=== PATIENT | female | born 1950 | race Caucasian/White ===

== ENCOUNTER 2017-11-16 14:57 | Inpatient (IN) ==
--- NOTE | 2017-11-16 16:01 | Emergency Department Note ---
Disposition Clinical Impression: Cellulitis Qualifiers: Site of cellulitis: extremity Site of cellulitis of extremity: lower extremity Laterality: left Qualified Code(s): L03.116 - Cellulitis of left lower limb Disposition: Admitted As Inpatient Condition: Fair Referrals: Pollo Swan DO [Primary Care Provider] - Forms: ED Satisfaction Letter Time of Disposition: 17:47 Skin/Abscess/FB HPI Chief complaint: ED Skin/Abscess/Foreign Body Stated complaint: "Cellulitis" Time Seen by Provider: 11/16/17 15:54 Source: patient Mode of arrival: ambulatory Limitations: no limitations Nursing Notes Reviewed: Yes Vital Signs Reviewed: Yes HPI Narrative: 67-year-old who presents with department complaining of an infection on her left anterior leg. The patient was seen at urgent care yesterday placed on Keflex and the of rashes gotten significantly worse according the patient. Achy all over she's had 2 episodes of significant cellulitis in the past requiring admission. Pt Subjective Complaint: rash Onset (ago): day(s) (2) Location: LLE Severity: moderate Quality: burning, aching Consistency: constant Improves with: none Worsens with: palpation Context: recent antibiotic Associated symptoms: Reports: chills Treatments prior to arrival: antibiotic Home Medications Medication Instructions Recorded Confirmed DULoxetine [Cymbalta] 30 mg PO BID 05/12/16 01/21/17 Itraconazole [Sporanox] 200 mg PO BID 05/12/16 01/21/17 Meloxicam [Mobic] 15 mg PO DAILY 05/12/16 01/21/17 amLODIPine [Norvasc] 5 mg PO DAILY 05/12/16 01/21/17 metFORMIN [Glucophage] 500 mg PO DAILY 05/12/16 01/21/17 rOPINIRole [Requip] 1 mg PO HS 05/12/16 01/21/17 Albuterol Sulfate [Albuterol 2 puff IH Q4HR PRN 11/10/16 01/21/17 Inhaler] Previous Rx's Medication Instructions Recorded Amoxicillin 875 mg PO BID #20 tablet 01/14/17 Benzonatate [Tessalon] 200 mg PO TID PRN #30 capsule 01/14/17 Fexofenadine HCl 180 mg PO DAILY PRN #30 tablet 01/14/17 Ibuprofen [Motrin] 800 mg PO Q6-8H PRN #30 tablet 01/14/17 Allergies Allergy/AdvReac Type Severity Reaction Status Date / Time Oxycodone [From Percodan] Allergy See Verified 11/16/17 15:02 Comments All systems ED: reviewed and negative except as stated. Constitutional: Denies: fever, chills, weakness, weight change Eyes: Denies: eye pain, eye discharge, vision change ENT ED: Denies: ear pain, throat pain, dental pain, hearing loss, epistaxis, congestion, dysphagia Cardiovascular: Denies: chest pain, palpitations, dyspnea on exertion, edema, syncope Respiratory: Denies: cough, dyspnea, wheezes, hemoptysis, stridor Gastrointestinal: Denies: abdominal pain, nausea, vomiting, diarrhea, constipation, hematemesis, melena, hematochezia Genitourinary: Denies: dysuria, frequency, hematuria, discharge Musculoskeletal: Denies: back pain, neck pain, arthralgia, myalgia Integumentary: Reports: rash (Left lower extremity). Denies: abrasion, lesions Neurological: Denies: headache, weakness, numbness, paresthesias, confusion, abnormal gait, vertigo Psychiatric: Denies: anxiety, depression, suicidal thoughts, homicidal thoughts , auditory hallucinations, visual hallucinations Endocrine: Denies: fatigue Hematological/Lymphatic: Denies: easy bleeding, easy bruising Allergic/Immunologic: Denies: facial swelling, urticaria Past Medical History - Past Medical History Medical history: Reports: arthritis, diabetes, GERD, hypertension Surgical history: Reports: appendectomy, other Psychiatric history: Reports: anxiety, depression 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, bilateral tubal ligation - Social History Smoking Status: Unknown if ever smoked Smokeless Tobacco Status: No Alcohol use: Reports: none Drug use: Reports: none Physical Exam - General Limitations: no limitations General appearance: alert, in no apparent distress - Head Head exam: atraumatic, normocephalic, normal inspection - Eye Eye exam: Present: normal appearance, PERRL, EOMI - ENT ENT exam: normal exam, normal oropharynx, mucous membranes moist - Neck Neck exam: Present: normal inspection, full ROM, trachea midline - Chest Chest inspection: Present: normal inspection, symmetric chest wall rise - Respiratory Respiratory exam: Present: normal lung sounds bilaterally - Cardiovascular Cardiovascular exam: Present: regular rate, normal rhythm, normal heart sounds - Abdominal Exam Abdominal exam: Present: soft, Non-Tender. Absent: tenderness, distention, guarding, rebound, rigidity - Expanded Lower Extremity Exam Lower leg exam: Present: erythema (Anterior leg). Absent: Homans' sign Neurovascular/Tendon exam: Absent: motor deficit, sensory deficit, tendon deficit Gait: observed and normal - Back Exam Back exam: Present: normal inspection, full ROM. Absent: tenderness - Neurological Exam Neurological exam: Present: alert, oriented X3 - Psychiatric Psychiatric exam: Present: normal affect, normal mood - Skin Skin exam: Present: warm, dry, intact, normal color Course - Reevaluation(s) Reevaluation #1: 67-year-old with cellulitis on her left leg that has not responded to outpatient treatment of one day. States the rash is actually worse. Time: 17:45 - Consultations Consultation #1: Discussed with Dr. Medina, it. Time: 17:46 Vital Signs Temperature 97.5 F L 11/16/17 15:00 Pulse Rate 100 11/16/17 15:00 Respiratory Rate 18 11/16/17 15:00 Blood Pressure 112/83 11/16/17 15:00 O2 Sat by Pulse Oximetry 97 11/16/17 15:00 Temperature 97.5 F L 11/16/17 15:00 Pulse Rate 100 11/16/17 15:00 Respiratory Rate 18 11/16/17 15:00 Blood Pressure 112/83 11/16/17 15:00 O2 Sat by Pulse Oximetry 97 11/16/17 15:00 Oxygen Delivery Oxygen Delivery Room Air Skin/Abscess/Foreign Body - Lab Data Result diagrams: 11/16/17 16:30 11/16/17 16:30 Lab Results 11/16/17 11/16/17 11/16/17 Range/Units 16:30 16:30 16:30 WBC 12.9 H (4.3-11.1) K/mcL RBC 5.38 H (3.82-4.97) M/mcL Hgb 13.9 (11.5-15.4) g/dL Hct 42.5 (35.3-44.9) % MCV 79.0 L (83.0-100.0) fL MCH 25.8 L (28.0-33.3) pg MCHC 32.7 (31.6-35.5) g/dL RDW 14.7 H (11.5-14.5) % Plt Count 324 (140-400) K/mcL MPV 10.5 (9.4-12.4) fL Immature Gran % 0.6 (0-4) % Seg Neutrophils % 60.3 % Lymphocytes % 28.4 % Monocytes % 7.8 % Eosinophils % 2.4 % Basophils % 0.5 % Neutrophils # 7.8 (1.6-8.9) K/mcL Lymphocytes # 3.7 (0.6-4.6) K/mcL Monocytes # 1.0 (0.0-1.3) K/mcL Eosinophils # 0.3 (0.0-0.6) K/mcL Basophils # 0.1 (0.0-0.2) K/mcL ESR 56 H (0-15) mm/hr Sodium 138 (136-145) mEq/L Potassium 3.7 (3.5-5.1) mEq/L Chloride 102 (98-107) mEq/L Carbon Dioxide 27 (23-29) mEq/L BUN 17 (8-23) mg/dL Creatinine 1.16 (0.60-1.20) mg/dL Est GFR ( Amer) 57 L (> 60) Est GFR (Non-Af Amer) 47 L (> 60) BUN/Creatinine Ratio 15 (6-26) Glucose 128 H (70-105) mg/dL Calculated Osmolality 289 (280-300) Calcium 9.4 (8.6-10.3) mg/dL
[2017-11-16 16:48] LABS: Basophils # 0.1 K/mcL (0.0-0.2); Basophils % 0.5 %; Eosinophils # 0.3 K/mcL (0.0-0.6); Eosinophils % 2.4 %; Hematocrit 42.5 % (35.3-44.9); Hemoglobin 13.9 g/dL (11.5-15.4); Immature Granulocytes % 0.6 % (0-4); Lymphocytes # 3.7 K/mcL (0.6-4.6); Lymphocytes % 28.4 %; Mean Corpuscular HGB Conc 32.7 g/dL (31.6-35.5); Mean Corpuscular Hemoglobin 25.8 pg (28.0-33.3); Mean Platelet Volume 10.5 fL (9.4-12.4); Monocytes % 7.8 %; Neutrophils # 7.8 K/mcL (1.6-8.9); Platelet Count 324 K/mcL (140-400); Red Blood Count 5.38 M/mcL (3.82-4.97); Red Cell Distribution Width 14.7 % (11.5-14.5); Segmented Neutrophils % 60.3 %
[2017-11-16 16:59] LABS: Calcium 9.4 mg/dL (8.6-10.3); Potassium 3.7 mEq/L (3.5-5.1)
[2017-11-16] MEDS ORDERED: Piperacillin/Tazobactam 3.375 GM in D5% in Water (Mini-Bag+) 100 ML IVPB ONE (17:10)
[2017-11-16] MEDS ORDERED: Naloxone 0.4 MG/ML INJ IVP PRN (17:29)
[2017-11-16] MEDS ORDERED: MOM Conc 10 ML UD.LIQ PO PRN (17:29)
[2017-11-16] MEDS ORDERED: Acetaminophen 325 MG TABLET PO PRN (17:29)
[2017-11-16] MEDS ORDERED: Ondansetron 4 MG/2 ML VIAL IVP PRN (17:29)
[2017-11-16] MEDS ORDERED: Mag Hydrox/Al Hydrox/Simeth 30 ML UDC PO PRN (17:29)
[2017-11-16] MEDS ORDERED: Piperacillin/Tazobactam 3.375 GM in Water for inj. (sterile) 20 ML IVP ONE (17:35)
--- NOTE | 2017-11-16 17:35 | Internal Med History&Physical ---
<Danny Rayo - Last Filed: 11/16/17 19:21> Date of Encounter: 11/16/17 Time of Encounter: 17:33 Assessment and Plan (1) Left leg cellulitis Status: Acute - Blood cx pending. - continue Zosyn for now. (2) Diabetes mellitus without complication Status: Chronic - A1c 6.8 - On Metformin, will hold metformin for now. - insulin sliding scale. (3) Essential hypertension Status: Chronic (4) RLS (restless legs syndrome) Status: Chronic Internal Medicine - H&P: HPI Admitted From: Emergency Dept Plans for Post Hospital Care: Home History of present illness: Ms. Soria is a 67 year old female with past medical history of diabetes who presented to the ED with leg rashes for 2 days. 67-year-old who presents with department complaining of an infection on her left anterior leg. The patient was seen at urgent care yesterday placed on Keflex and the of rashes gotten significantly worse according the patient. Achy all over she's had 2 episodes of significant cellulitis in the past requiring admission. Her previous she has diabetes for many years. She takes metformin at home and checked her sugar once a day which she reported was normal most of the time. At the ED, her vital signs were stable. Hemoglobin A1c was 6.8. She received 1 dose of Zosyn and will be admitted to the inpatient service for further management. Past Med Surg Social Fam HX - Past Medical History Medical history: arthritis, diabetes, GERD, hypertension Psychiatric history: anxiety, depression - Past Surgical History Surgical History: appendectomy, other - Social History Smoking Status: Unknown if ever smoked Smokeless Tobacco Status: No Alcohol use: none Drug use: none - Family History Mother Living Status: Father Living Status: Hx Family Respiratory Disorders: Yes Internal Medicine - H&P: Meds DULoxetine [Cymbalta] 30 mg PO BID 05/12/16 [History] Meloxicam [Mobic] 15 mg PO DAILY 05/12/16 [History] amLODIPine [Norvasc] 5 mg PO DAILY 05/12/16 [History] metFORMIN [Glucophage] 500 mg PO DAILY 05/12/16 [History] rOPINIRole [Requip] 1 mg PO HS 05/12/16 [History] Fluconazole [Diflucan] 150 mg PO THFR 11/17/17 [History] Fluticasone Propionate Nasal [Flonase] 1 spray NS BID 11/17/17 [History] Gabapentin [Neurontin] 400 mg PO TID 11/17/17 [History] Pantoprazole Sodium 40 mg PO DAILY 11/17/17 [History] cephALEXin [Keflex] 500 mg PO TID 11/17/17 [History] Sulfamethoxazole/Trimeth DS [Bactrim DS] 1 each PO BID #8 tablet 11/18/17 [Rx] 3 Allergy/AdvReac Type Severity Reaction Status Date / Time Oxycodone [From Percodan] Allergy See Verified 11/17/17 10:23 Comments All Systems PM: A 10-system review of systems was performed and is negative for pertinent findings except as documented above in the HPI. Review of systems: REVIEW OF SYSTEMS: CONSTITUTIONAL: No weight loss, fever, chills, weakness or fatigue. HEENT: Eyes: No visual loss, blurred vision, double vision or yellow sclerae. Ears, Nose, Throat: No hearing loss, sneezing, congestion, runny nose or sore throat. SKIN: see HPI. CARDIOVASCULAR: No chest pain, chest pressure or chest discomfort. No palpitations or edema. RESPIRATORY: No shortness of breath, cough or sputum. GASTROINTESTINAL: No anorexia, nausea, vomiting or diarrhea. No abdominal pain or blood. GENITOURINARY: No dysuria, urgency, or frequency. NEUROLOGICAL: No headache, dizziness, syncope, paralysis, ataxia, numbness or tingling in the extremities. No change in bowel or bladder control. MUSCULOSKELETAL: No muscle, back pain, joint pain or stiffness. HEMATOLOGIC: No anemia, bleeding or bruising. LYMPHATICS: No enlarged nodes. No history of splenectomy. PSYCHIATRIC: No history of depression or anxiety. ENDOCRINOLOGIC: No reports of sweating, cold or heat intolerance. No polyuria or polydipsia. - Constitutional Vitals: Temp Pulse Resp BP Pulse Ox 97.5 F L 100 18 112/83 97 11/16/17 15:00 11/16/17 15:00 11/16/17 15:00 11/16/17 15:00 11/16/17 15:00 Exam: PHYSICAL EXAMINATION: GENERAL APPEARANCE: The patient is alert, oriented and in no acute distress. HEENT: Head is normocephalic. The sinuses are non-tender. Pupils are equal and reactive. The nares are patent. Oropharynx clear without lesions. NECK: Supple without lymphadenopathy. HEART: Regular rate and rhythm. LUNGS: No crackles or wheezes are heard. ABDOMEN: Soft, non-tender, non-distended with good bowel sounds heard. Inguinal area is normal. EXTREMITIES: Without cyanosis, clubbing or edema. NEUROLOGICAL: Gross non-focal. SKIN: Erythematous rash noted at the left martin. Internal Med - H&P Results - Labs CBC & Chem 7: 11/16/17 16:30 11/16/17 16:30 Labs: Short CBC 11/16/17 Range/Units 16:30 WBC 12.9 H (4.3-11.1) K/mcL Hgb 13.9 (11.5-15.4) g/dL Hct 42.5 (35.3-44.9) % Plt Count 324 (140-400) K/mcL Neutrophils # 7.8 (1.6-8.9) K/mcL BMP 11/16/17 16:30 Sodium 138 Potassium 3.7 Chloride 102 Carbon Dioxide 27 BUN 17 Creatinine 1.16 Glucose 128 H Calcium 9.4 - Impressions ITS Impressions Tibia/Fibula X-Ray 11/16/17 15:57 IMPRESSION: No acute process D/ / Ignacio Ramirez MD / Ignacio Ramirez MD Interpreting Provider: Ignacio Ramirez MD <AissatouMadie Lauren - Last Filed: 12/11/17 08:13> Date of Encounter: 12/11/17 Internal Medicine - H&P: HPI History of present illness: Ms. Soria is a 67 year old female All Systems PM: A 10-system review of systems was performed and is negative for pertinent findings except as documented above in the HPI. - Constitutional Vitals: Temp Pulse Resp BP Pulse Ox 98.0 F 94 16 118/77 98 11/18/17 11:37 11/18/17 11:37 11/18/17 11:37 11/18/17 11:37 11/18/17 11:37 Internal Med - H&P Results - Labs CBC & Chem 7: 11/17/17 05:03 11/17/17 05:03 - Attending Attestation I personally and independently interviewed and examined the patient with ADVERTISING OPERATIONS COORDINATOR, and I reviewed the patient's medical record with her. I am in agreement with the assessment and proposed treatment plan. I discussed my findings and recommendation with the patient and answer all questions. The patient's medical records were edited to accurately reflect this encounter.
[2017-11-16] MEDS ORDERED: D5% in Water 1,000 ML IVC PRN (17:39)
[2017-11-16] MEDS ORDERED: Dextrose Gel 15 GM/37.5 ML TUBE PO PRN ×2 (17:39)
[2017-11-16] MEDS ORDERED: *HR* Dextrose 50 % in Water (Syg) 50 ML SYRINGE IVP PRN (17:39)
[2017-11-16 17:56] LABS: Hemoglobin A1C 6.3 %
[2017-11-16] MEDS: *HR* Heparin 5,000 UNIT/ML VIAL SQ SCH (19:00)
[2017-11-16] MEDS ORDERED: Loratadine 10 MG TABLET PO PRN (19:17)
[2017-11-16] MEDS: rOPINIRole 1 MG TABLET PO SCH (21:44)
[2017-11-16] MEDS: *HR* Morphine 2 MG/ML SYRINGE IVP PRN (21:44)
[2017-11-17] MEDS: Piperacillin/Tazobactam 3.375 GM/200 ML BAG IVPB SCH ×3 (02:06→15:18)
[2017-11-17] MEDS: *HR* Morphine 2 MG/ML SYRINGE IVP PRN (02:06)
[2017-11-17 05:38] LABS: Hematocrit 40.4 % (35.3-44.9); Mean Corpuscular HGB Conc 32.2 g/dL (31.6-35.5); Mean Corpuscular Hemoglobin 25.5 pg (28.0-33.3); Mean Corpuscular Volume 79.4 fL (83.0-100.0); Mean Platelet Volume 10.6 fL (9.4-12.4); Platelet Count 339 K/mcL (140-400); Red Blood Count 5.09 M/mcL (3.82-4.97); Red Cell Distribution Width 14.7 % (11.5-14.5)
[2017-11-17 05:49] LABS: Alanine Aminotransferase 33 Units/L (7-52); Albumin 3.7 g/dL (3.5-5.7); Albumin/Globulin Ratio 1.3 (1.1-2.2); Alkaline Phosphatase 93 Units/L (34-104); Aspartate Amino Transferase 26 Units/L (13-39); BUN/Creatinine Ratio 17 (6-26); Bilirubin,Total 0.5 mg/dL (0.3-1.0); Blood Urea Nitrogen 17 mg/dL (8-23); Carbon Dioxide 28 mEq/L (23-29); Chloride 101 mEq/L (98-107); Globulin 2.8 g/dL (2.4-3.5); Glucose 155 mg/dL (70-105); Osmolality,Calculated 291 (280-300); Potassium 3.5 mEq/L (3.5-5.1); Sodium 138 mEq/L (136-145); Total Protein 6.5 g/dL (6.4-8.9); eGFR For African Americans > 60 (> 60); eGFR For Non-African Americans 54 (> 60)
[2017-11-17] MEDS: *HR* Heparin 5,000 UNIT/ML VIAL SQ SCH ×2 (05:58→16:41)
[2017-11-17] MEDS: Insulin LISPRO 300 UNITS/3 ML VIAL SQ SCH ×3 (07:31→16:40)
[2017-11-17] MEDS: amLODIPine 5 MG TABLET PO SCH (07:32)
[2017-11-17] MEDS ORDERED: Vancomycin 1,000 MG in D5% in Water 250 ML IVPB SCH ×2 (16:00)
--- NOTE | 2017-11-17 16:38 | Internal Med Progress Note ---
Date of Encounter: 11/17/17 Time of Encounter: 16:35 - Assessment and plan (1) Left leg cellulitis Current Visit: Yes Status: Acute Assessment and plan: Area of cellulitis has been marked. Nursing made aware. Continue antibiotics at this point and monitor closely. Tibial x-ray negative for Jacque mellitus. Await cultures and sensitivities. Pain is well-controlled (2) Diabetes mellitus without complication Current Visit: No Status: Chronic Assessment and plan: Continue current treatment and monitor - Time Spent With Patient 25 - 35 minutes - Subjective Interval history: Left lower extremity rash continues to be there although patient does not feel it is getting worse. She does state she has a pain level of about 5/10 on palpation above the infection site. - Constitutional Vitals: Temp Pulse Resp BP Pulse Ox 97.9 F 101 14 134/76 94 11/17/17 15:00 11/17/17 15:00 11/17/17 15:00 11/17/17 15:00 11/17/17 15:00 Exam: General , Alert , moderate distress HEENT- PERRLA. EOMI CVS- S1S2 N, No Murmurs, Rubs, gallops, No JVD RS- CTA Bilaterally. No rales no Rhonchi heard Abdomen- Soft NT ND, bowel sounds heard across all 4 quadrants Neuro- No Focal deficits appreciated, CN 2-12 intact, Motors- power 5/5 UE, 5/5 LE Bilaterally, Sensations intact Extremeties- rash erythematous with local warmth and tenderness to palpation seen over the left Mayo-area marked Internal Medicine: Result - Labs CBC & Chem 7: 11/17/17 05:03 11/17/17 05:03 Labs: Short CBC 11/17/17 Range/Units 05:03 WBC 11.6 H (4.3-11.1) K/mcL Hgb 13.0 (11.5-15.4) g/dL Hct 40.4 (35.3-44.9) % Plt Count 339 (140-400) K/mcL BMP 11/17/17 05:03 Sodium 138 Potassium 3.5 Chloride 101 Carbon Dioxide 28 BUN 17 Creatinine 1.02 Glucose 155 H Calcium 9.0 Liver Function 11/17/17 Range/Units 05:03 Total Bilirubin 0.5 (0.3-1.0) mg/dL AST 26 (13-39) Units/L ALT 33 (7-52) Units/L Alkaline Phosphatase 93 (34-104) Units/L Albumin 3.7 (3.5-5.7) g/dL Consult Discharge Plan - Plan Referrals: Pollo Swan DO [Primary Care Provider] -
[2017-11-17] MEDS: rOPINIRole 1 MG TABLET PO SCH (22:17)
[2017-11-18] MEDS: Piperacillin/Tazobactam 3.375 GM/200 ML BAG IVPB SCH ×2 (00:17→08:09)
[2017-11-18] MEDS: *HR* Heparin 5,000 UNIT/ML VIAL SQ SCH (06:40)
[2017-11-18] MEDS: Insulin LISPRO 300 UNITS/3 ML VIAL SQ SCH ×2 (08:10→12:40)
[2017-11-18] MEDS: amLODIPine 5 MG TABLET PO SCH (08:10)
[2017-11-18 11:50] VITALS: BP 118/77
--- NOTE | 2017-11-18 12:05 | Discharge Summary ---
<Roger,Kirk Winn - Last Filed: 11/18/17 15:59> Date of Encounter: 11/18/17 Time of Encounter: 12:02 - Discharge Diagnosis (1) Diabetes mellitus without complication Priority: Primary Status: Chronic (2) Left leg cellulitis Priority: Secondary Status: Acute - Discharge Medications Prescriptions: Sulfamethoxazole/Trimeth DS [Bactrim DS] 1 each PO BID #8 tablet Home Medications: DULoxetine [Cymbalta] 30 mg PO BID 05/12/16 [History] Meloxicam [Mobic] 15 mg PO DAILY 05/12/16 [History] amLODIPine [Norvasc] 5 mg PO DAILY 05/12/16 [History] metFORMIN [Glucophage] 500 mg PO DAILY 05/12/16 [History] rOPINIRole [Requip] 1 mg PO HS 05/12/16 [History] Fluconazole [Diflucan] 150 mg PO THFR 11/17/17 [History] Fluticasone Propionate Nasal [Flonase] 1 spray NS BID 11/17/17 [History] Gabapentin [Neurontin] 400 mg PO TID 11/17/17 [History] Pantoprazole Sodium 40 mg PO DAILY 11/17/17 [History] cephALEXin [Keflex] 500 mg PO TID 11/17/17 [History] Sulfamethoxazole/Trimeth DS [Bactrim DS] 1 each PO BID #8 tablet 11/18/17 [Rx] Allergies/Adverse Reactions: 3 Allergy/AdvReac Type Severity Reaction Status Date / Time Oxycodone [From Percodan] Allergy See Verified 11/17/17 10:23 Comments Date of admission: 11/16/17 17:58 Primary care physician: Pollo Swan, Discharging clinician: Kirk Duran Anticipated date of discharge: 11/18/17 - Patient Status Disposition: Home, Self-Care Condition: Fair Functional capacity at discharge: independent ambulation Overall status at discharge: patient is progressing back to baseline - Discharge Instructions Follow Up With: Pollo Swan DO [Primary Care Provider] - 12/02/17 9:30 am Additional Instructions: Follow-up appointments: If there is not an appointment listed below, please call your physician and schedule a follow-up appointment. If you have congestive heart failure and your symptoms return, make an appointment with your physician. Medication List: Carry an up to date list of medications you are taking at all time. We have given you an updated medication list including any new medications that you have been prescribed. Please provide that list to your primary provider Symptoms: If your condition changes or you experience any of the following symptoms, notify your physician immediately: Unusual or worsening pain, fever, persistent nausea and vomiting, bleeding, increase in swelling (especially in your legs), sudden weight gain, extreme dizziness, chest pain, increased drainage or redness from a wound or incision. Go to the emergency department if you experience a problem with breathing. Weights: If you have a history of swelling or shortness of breath, weigh yourself daily and notify your physician if you have a weight gain of two or more pounds in one day or 5 or more pounds in a week. If you experience any of the warning signs for stroke: Sudden numbness or weakness of the face, arm or leg; especially on one side of the body, sudden confusion, trouble speaking or understanding, sudden trouble seeing in one or both eyes, sudden trouble walking, dizziness, loss of balance or coordination, sudden sever headache with no cause; Call 911 or go to the emergency room. Stroke is a medical emergency. Some risk factors for stroke: Age, cigarette smoking, diabetes, excessive alcohol consumption, family history , high blood pressure, overweight, physical inactivity, prior stroke, heart attack, diagnosis of carotid artery stenosis or other artery disease. If you smoke, STOP: Smoking or tobacco use significantly increases your risk of heart and lung disease. Your chance of disease greatly increases if you continue to smoke. For more information, call the [place] tobacco quit line for smoking cessation QUIT-NOW ( ) - Diet and Activity Activity: increase activity as tolerated Diet: diabetic diet Hospital course: Ms. Soria is a 67 year old female presented with chief complaint of left lower extremity rash for 2 days. Patient went to urgent care with this rash and was prescribed Keflex but the rash got significantly worse. States left lower extremity has been warm, red, with pain. Patient has a history of diabetes which is controlled with a A1c of 6.8. Patient is admitted for left leg cellulitis. She was started on broad-spectrum antibiotics: Vancomycin and Zosyn. On admission her white blood count was 12.9 and thereafter has trended down. She was afebrile, heart rate less than 100. Patient elevated ESR at 56. After 48 hours IV antibiotics patient's left lower extremity cellulitis improved. She is transitioned to Bactrim. She was able to ambulate independently and tolerating her diet. Patient was sent home with 8 additional days of Bactrim. Patient should follow-up with her PCP in the next 7 days. - Time Spent with Patient Total time spent providing and/or coordinating discharge services: - Constitutional Vitals: Temp Pulse Resp BP Pulse Ox 98.0 F 94 16 118/77 98 11/18/17 11:37 11/18/17 11:37 11/18/17 11:37 11/18/17 11:37 11/18/17 11:37 - Other Additional findings: General: without distress HEENT: Head atraumatic, normocephalic, EOMI, PERRL, neck nontender to palpation , absent lymphadenopathy, Moist Mucous Membranes, Heart: Regular rate and rhythm with no murmur Lungs: Clear to auscultation bilaterally Abdomen: Soft nontender, nondistended positive bowel sounds Skin: warm and dry Extremities: Absent pedal edema, left lower extremity region of circumcised erythema and warmth on the anterior aspect of distal martin. Neuro: Cranial nerves II through XII intact, UE and LE sensation equal bilaterally, UE and LEstrength 5/5, alert oriented 3, Heel to martin intact, finger to nose intact, Gait intact, rhombergs sign negative, b/l plantar reflexes downwards Vascular: Pedal and radial pulses 2 out of 4 <Linda Rasmussen G - Last Filed: 11/18/17 16:18> Date of Encounter: 11/18/17 - Discharge Diagnosis (1) Left leg cellulitis Status: Acute (2) Diabetes mellitus without complication Status: Chronic Date of admission: 11/16/17 17:58 Primary care physician: Pollo Swan, Hospital course: Ms. Soria is a 67 year old female - Time Spent with Patient Total time spent providing and/or coordinating discharge services: - Constitutional Vitals: Temp Pulse Resp BP Pulse Ox 98.0 F 94 16 118/77 98 11/18/17 11:37 11/18/17 11:37 11/18/17 11:37 11/18/17 11:37 11/18/17 11:37 - Attending Attestation I saw and evaluated the patient at bedside. I have reviewed the DC Summary note , obtained and documented by the resident and personally participated in the lewis components. I have discussed the case and management of the patient's care. I agree with the findings and plan of care.
[2017-11-18] MEDS ORDERED: Aminoglycoside Consult 1 EACH MC ONE (14:54)
== END 2017-11-18 14:55 | disposition home or self-care (01) | DRG 603 ==
LOC: 3NENU 14:57 → EMEROO 14:57 → SUATTDRO 17:58 → 3NENU 18:16
PROVIDERS: ADMIT Internal Medicine Nephrology; ATTEND Internal Medicine